=== PATIENT | male | born 2000 | race African-American/Black ===

== ENCOUNTER → 2024-05-26 | Outpatient (CLI) | payer BC, OTHER ==
[2024-05-26 15:41] LABS: Appearance,Urine Clear (Clear); Bilirubin,Urine Negative (Negative); Blood,Urine Negative (Negative); Color,Urine Yellow; Glucose,Urine (UA) Negative (Negative); Ketones,Urine Negative (Negative); Leukocyte Esterase,Urine Negative (Negative); Nitrite,Urine Negative (Negative); PH, Urine 5.5 (5.0-8.0); Protein,Urine Negative (Negative); Specific Gravity,Urine 1.018 (1.001-1.035); Urobilinogen,Urine <2.0 mg/dL (<2.0)
[2024-05-26 19:11] LABS: BUN/Creat Ratio 11.56 Ratio (12.00-20.00); Blood Urea Nitrogen 10.4 mg/dL (9.0-27.0); Calcium 9.6 mg/dL (8.7-10.3); Carbon Dioxide 24.2 mmol/L (21.6-31.8); Chloride 108 mmol/L (96-109); Glucose 89 mg/dL (70-110); Potassium 4.4 mmol/L (3.5-5.5); Sodium 145 mmol/L (135-145)
[2024-05-26 19:12] LABS: Basophils # (A) 0.08 X 10*3/uL (0.00-0.10); Basophils % (A) 0.8 %; Eosinophils # (A) 0.12 X 10*3/uL (0.04-0.35); Eosinophils % (A) 1.2 %; HCT 39.5 % (39.6-50.0); HGB 12.7 g/dL (13.0-17.0); Lymphocytes # (A) 2.36 X 10*3/uL (0.90-5.00); Lymphocytes % (A) 23.7 %; MCH 26.8 pg (27.0-32.0); MCHC 32.2 g/dL (32.0-37.0); MCV 83.3 FL (80.0-97.0); Mean Platelet Volume 10.7 FL (9.5-12.2); Monocytes # (A) 0.61 X 10*3/uL (0.20-1.00); Monocytes % (A) 6.1 %; NRBC Per 100 WBC 0 X 10*3/uL (0.00-0.01); Neutrophils # (A) 6.76 X 10*3/uL (1.80-7.70); Neutrophils % (A) 67.9 %; Platelet Count 332 X 10*3/uL (140-440); RBC 4.74 X 10*6/uL (4.40-5.60); RDW 13.7 % (11.5-14.5); WBC 9.96 X 10*3/uL (4.50-10.00)
== END | disposition home or self-care (01) ==
LOC: LABPAT 14:02
PROVIDERS: ATTEND Urology
DX: Z01.812 Encounter for preprocedural laboratory examination (principal); R31.0 Gross hematuria
CPT/HCPCS: 80048; 81003; 85025; 87086

== ENCOUNTER 2024-06-02 06:06 | Day surgery (SDC) | payer BC, OTHER ==
[2024-05-28 12:07] VITALS: BMI 50.8
--- NOTE | 2024-06-01 13:40 | P.HPIHPCON ---
History of Present Illness H&P Date: 06/01/24 Chief Complaint: Gross Hematuria This is a 23 yo male with hx of development delay and gross hematuria. 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 Discussed if abnormality is seen on cysto then will proceed with TURBT. Risk of bleeding, infection and injury to the bladder was discussed. He understood all the risk and agreed to proceed Consent for Procedure: I have explained the operation/procedure to the patient, including the risks, benefits, side effects, alternative therapies (including not receiving the proposed treatment or service), the likelihood of the patient achieving his/her goals, and potential recuperation problems for the procedure/sedation/analgesia, as well as any blood products, if indicated. I also explained to the patient the risks, benefits and side effects of the alternatives, as well as the risks related to not receiving the proposed procedure, care, treatment, or services. Past Medical History Past Medical History: GERD/Reflux Additional Past Medical History / Comment(s): HX ALCOHOL SYNDROME. SPECIAL NEEDS. HEART MURMUR-BEING MONITORED. BLOOD IN URINE History of Any Multi-Drug Resistant Organisms: None Reported Past Surgical History: Appendectomy Additional Past Surgical History / Comment(s): SURGERY FOR RUPTURED APPENDIX Past Anesthesia/Blood Transfusion Reactions: No Reported Reaction Smoking Status: Never smoker - Past Family History Mother Family Medical History: No Reported History Additional Family Medical History / Comment(s): PT ADOPTED-FAMILY HX UNKNOWN EXCEPT THAT BOTH PARENTS WERE LOW FUNCTIONING, AND MOM WAS ALCOHOLIC Medications and Allergies Home Medications Medication Instructions Recorded Confirmed Type DULoxetine HCL [Cymbalta] 120 mg PO DAILY 05/28/24 05/28/24 History Levocetirizine Dihydrochloride 5 mg PO HS 05/28/24 05/28/24 History [Xyzal] Lurasidone [Latuda] 40 mg PO DAILY@1800 05/28/24 05/28/24 History Montelukast [Singulair] 10 mg PO HS 05/28/24 05/28/24 History Omeprazole 40 mg PO DAILY 05/28/24 05/28/24 History busPIRone HCL [Buspar] 30 mg PO BID 05/28/24 05/28/24 History cloNIDine HCL [Catapres] 0.1 mg PO QAM 05/28/24 05/28/24 History cloNIDine HCL [Catapres] 2 mg PO HS 05/28/24 05/28/24 History oxyBUTYnin chloride [Ditropan] 5 mg PO DAILY@1800 05/28/24 05/28/24 History traZODone HCL [Desyrel] 50 mg PO HS 05/28/24 05/28/24 History Allergies Allergy/AdvReac Type Severity Reaction Status Date / Time Beef Containing Products AdvReac Diarrhea Verified 05/28/24 11:55 [Beef] milk AdvReac Diarrhea Verified 05/28/24 11:55 Surgical - Exam - General no distress, no pain - Eyes normal ocular movement - ENT normal nares, normal mucosa - Respiratory normal expansion, normal respiratory effort Assessment and Plan Assessment: OR for cysto
[2024-06-02] MEDS ORDERED: SCOPOLAMINE 1 MG/72 HR PATCH TRANSDERM ONE (06:40)
[2024-06-02] MEDS ORDERED: MIDAZOLAM 2 MG/2 ML VIAL IV PRN (07:00)
[2024-06-02] MEDS ORDERED: HYDROmorphone 0.5 MG/0.5 ML SYRINGE IVP PRN (07:00)
[2024-06-02] MEDS: DEXAMETHASONE SOD PHOSPHATE 4 MG/ML 1 ML VIAL IV ONE (07:10)
[2024-06-02] MEDS: ONDANSETRON 4 MG/2 ML VIAL IVP ONE (07:10)
[2024-06-02] MEDS: LACTATED RINGERS 1,000 ML IV SCH (07:10)
[2024-06-02] MEDS: IV FLUID CONTINUATION 1,000 ML IV ONE (07:14)
[2024-06-02] MEDS ORDERED: MIDAZOLAM 2 MG/2 ML VIAL ONE (07:30)
[2024-06-02] MEDS ORDERED: LIDOCAINE 1% INJ 10MG/ML (20 ML MDV) ONE (07:30)
[2024-06-02] MEDS ORDERED: fentaNYL (PF) 50 MCG/ML 2 ML AMP ONE (07:30)
[2024-06-02] MEDS ORDERED: PROPOFOL 10 MG/ML 20 ML VIAL IV ONE (07:30)
[2024-06-02] MEDS ORDERED: SUCCINYLCHOLINE CHLORIDE 200 MG/10 ML VIAL IV ONE (07:30)
[2024-06-02] MEDS: ceFAZolin 3 GM in SODIUM CHLORIDE 0.9% 100 ML IVPB PRN (07:48)
[2024-06-02 08:20] VITALS: TEMP 97.8
--- NOTE | 2024-06-02 08:37 | P.OP ---
Date of Procedure: 06/02/24 Preoperative Diagnosis: Gross hematuria Postoperative Diagnosis: Same Procedure(s) Performed: Cystoscopy Implants: None Anesthesia: GETA Pathology: none sent Condition: stable Disposition: PACU Indications for Procedure: This is a 23 yo male with hx of development delay and gross hematuria. 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 Discussed if abnormality is seen on cysto then will proceed with TURBT. Risk of bleeding, infection and injury to the bladder was discussed. 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 He was prepped and draped in sterile fashion placed in a dorsolithotomy position. Cystoscopy fitted with a 17 [place] sheath was inserted per urethra, cystoscopy was performed which showed area of mucosal edema and friable mucosa along the penile urethra but no suspicious lesions identified, of note there was also two 18 [place] bulbar strictures I was able to navigate the scope past that and into the bladder, complete cystoscopy was performed in the bladder which showed no abnormality within the bladder or the prostate, ureteral orifices were normal anatomical location with clear efflux . Bladder was emptied at the end of the case. Patient tolerated procedure well was taken to recovery in stable condition
[2024-06-02 08:59] VITALS: BP 120/64; PULSE 90; RESP 18
== END 2024-06-02 09:45 | disposition home or self-care (01) ==
LOC: OR 06:06
PROVIDERS: ATTEND Urology
DX: R31.0 Gross hematuria (principal); K21.9 Gastro-esophageal reflux disease without esophagitis; R01.1 Cardiac murmur, unspecified; F41.9 Anxiety disorder, unspecified; E66.01 Morbid (severe) obesity due to excess calories; Q86.0 Fetal alcohol syndrome (dysmorphic); F79 Unspecified intellectual disabilities; Z79.899 Other long term (current) drug therapy; Z90.49 Acquired absence of other specified parts of digestive tract
CPT/HCPCS: 52000; J2250; J0330; J1100; J0690; J2405; J2003; J3010; J2704